=== PATIENT | female | born 1950 | race Caucasian/White ===

== ENCOUNTER 2020-09-18 21:26 | Emergency (ER) | payer MEDICARE ==
[2020-09-18 22:10] LABS: ABSOLUTE BASOPHILS # (AUTO) 0.1 10^3/uL (0.0-0.2); ABSOLUTE LYMPHOCYTES (AUTO) 1.3 10^3/uL (0.5-4.7); ABSOLUTE MONOCYTES (AUTO) 0.9 10^3/uL (0.1-1.4); ABSOLUTE NEUT (AUTO) 10.7 10^3/uL (1.7-8.2); BASOPHILS % (AUTO) 0.4 % (0-2); EOSINOPHILS % (AUTO) 0.3 % (0-6); HEMATOCRIT 37.2 % (36.0-47.0); HEMOGLOBIN 12.5 g/dL (12.0-15.5); LYMPHOCYTES % (AUTO) 10.3 % (13-45); MEAN CORPUSCULAR HEMOGLOBIN 30.4 pg (27.0-33.4); MEAN CORPUSCULAR HGB CONC 33.6 g/dL (32.0-36.0); MEAN CORPUSCULAR VOLUME 90 fl (80-97); MONOCYTES % (AUTO) 6.8 % (3-13); PLATELET COUNT 150 10^3/uL (150-450); RED BLOOD COUNT 4.12 10^6/uL (3.72-5.28); SEGMENTED NEUTROPHILS % (AUTO) 82.2 % (42-78); TOTAL CELLS COUNTED % (AUTO) 100 %
[2020-09-18 22:20] LABS: ALBUMIN 4.4 g/dL (3.5-5.0); ALKALINE PHOSPHATASE 120 U/L (38-126); ANION GAP 9 (5-19); ASPARTATE AMINO TRANSFERASE 161 U/L (14-36); BILIRUBIN,DIRECT 0.1 mg/dL (0.0-0.4); BILIRUBIN,TOTAL 1.6 mg/dL (0.2-1.3); BLOOD UREA NITROGEN 16 mg/dL (7-20); CALCIUM 10.2 mg/dL (8.4-10.2); CARBON DIOXIDE 28 mmol/L (22-30); CHLORIDE 104 mmol/L (98-107); GLUCOSE 107 mg/dL (75-110); POTASSIUM 4.4 mmol/L (3.6-5.0); TOTAL PROTEIN 7.2 g/dL (6.3-8.2)
[2020-09-18 22:22] LABS: APPEARANCE,URINE CLEAR; BILIRUBIN,URINE NEGATIVE (NEGATIVE); COLOR,URINE YELLOW; GLUCOSE, URINE NEGATIVE (NEGATIVE); KETONES,URINE 20 mg/dL (NEGATIVE); LEUKOCYTE ESTERASE,URINE SMALL (NEGATIVE); NITRITE,URINE POSITIVE (NEGATIVE); PROTEIN,URINE NEGATIVE (NEGATIVE); UROBILINOGEN,URINE NEGATIVE mg/dL (<2.0)
[2020-09-18 22:22] LABS: ALCOHOL < 10 mg/dL (NONE DETECTED)
--- NOTE | 2020-09-18 22:25 | ER Document Report ---
ED General - General Chief Complaint: Altered Mental Status Stated Complaint: AMS Time Seen by Provider: 09/18/20 21:51 Primary Care Provider: KACI AGUIRRE FNP [Primary Care Provider] - Follow up as needed TRAVEL OUTSIDE OF THE [place] IN LAST 30 DAYS: No - HPI Notes: 70-year-old female presents with altered mental status. Information is primarily obtained from nursing/EMS report. Around 1200 today patient seemed to become angry and off, at one point she was repeating words and singing inappropriately. She continued to be altered for the rest of the day therefore prompting her sister to call EMS. She apparently fell on Wednesday and has a bruise to her forehead. She had a brief moment of alertness with EMS where she did answer questions appropriately. EMS did actually give Narcan in route without much change in her mental status. Patient mostly altered, during in and out cath patient did become alert and communicate clearly, stating that she has pain where the urinary catheter was going in. - Related Data Allergies/Adverse Reactions: SANFORD Inhibitors [Sanford Inhibitors] Allergy (Unknown, Verified 10/24/13 13:54) ACEINHIBITORS [SANFORD Inhibitors] Allergy (Unknown, Verified 05/14/11 09:59) codeine [Codeine] Allergy (Unknown, Verified 05/14/11 09:58) Home Medications: Irbesartan [address] 20 mg. Fuosemide 20 mg. OsteoBiflex Triple strength 2 tablets. Aleve liquid gels. Simvastatin. Asipirin. Labetalol 100 mg. Spironolactone 25 mg. Morphine Sulf ER 15 mg. AZO bladder control capsule. Oxycodone-Acetaminophen 5-325 mg. Baclofen 20 mg. Gabapentin 300 mg Past Medical History - General Information source: Emergency Med Personnel Cannot obtain history due to: Altered mental status - Social History Smoking Status: Unknown if Ever Smoked Family History: CAD - Past Medical History Cardiac Medical History: Reports: Hx Hypercholesterolemia, Hx Hypertension Review of Systems - Review of Systems -: Yes ROS unobtainable due to patient's medical condition Physical Exam - Vital signs Vitals: Temp Pulse Resp Pulse Ox 98.3 F 90 19 99 09/18/20 21:27 09/18/20 21:27 09/18/20 21:27 09/18/20 21:27 - General In distress: None - HEENT Head: Normocephalic, Ecchymosis - Forehead Extraocular movements intact: Yes Pupils: PERRL Mucous membranes: Moist - Respiratory Respiratory status: No: Depressed respirations Breath sounds: Normal - Cardiovascular Rhythm: Regular Heart sounds: Normal auscultation Murmur: Yes Normal capillary refill: Yes - Abdominal Inspection: Obese Tenderness: Nontender Notes: Umbilical hernia, soft with no overlying erythema - Genitourinary External exam: Other - Strong urine smell - Extremities General upper extremity: Normal temperature General lower extremity: Normal temperature. No: Edema - Neurological Notes: Patient mostly exhibits altered mental status, had brief lucid episode where she communicated. During this time she had clear speech. Her face is symmetric. She does move all of her extremities. Lucid for about 1 minute and then appeared to become altered again. No gross neuro deficits though there is some limitation given her AMS - Psychological Associated symptoms: Other - Unable to fully assess - Skin Skin Temperature: Warm Course - Re-evaluation Re-evalutation: 70-year-old female arrives from home via EMS for altered mental status onset at 1200 today. Patient is mostly altered/delirious, had brief lucid episode where she was able to clearly communicate that the urinary catheter was causing her pain. She has no gross neuro deficits though there is some limitation to exam. If any strokelike process were to be present, she would be outside the window for TPA, though a low suspicion for acute CVA at this time given that she does move all extremities, her face is symmetric and her speech was clear. She is currently hemodynamically stable. Lungs are clear and abdomen is soft. There is a strong urine smell, suspect possible UTI which could be causing the delirium. Reviewed her medication list, she is on chronic morphine and oxycodone, additionally takes baclofen and gabapentin. If she has MARCK or other metabolic abnormality present, this could possibly be accumulation of drug effect as well. She has no respiratory depression or hypoxia to necessitate more Narcan at this time. Will obtain chest x-ray to assure that no consolidati on is present. Obtain CT head to assure that no bleed is present given that she did fall 2 days ago. 09/18/20 22:25 Urine with evidence of UTI, will send for culture. There is a urine culture from 2010 which did not have any growth. Will start with empiric Rocephin, use 2g given her weight/BMI 12/02/20 23:52 Slight leukocytosis, anticipate this given the UTI. Electrolytes within normal limits. Creatinine is within normal limits. No anion gap. Bicarb is normal limits. Head CT is negative for acute finding. No consolidation on chest x- ray. I went to reassess patient, she is now completely alert and oriented. She was able to recount her admission from 2010. Does admit to some flank pain, will consider her Laurent. She is able to give a medical history and is able to state that she typically does go on Keflex for urinary tract infections. She moves all extremities and has no gross focal deficits. She has tolerated p.o. I did give her a dose of [place] for her chronic pain. Sister at bedside is comfortable taking her home. Discussed that she may be called if culture results and antibiotics to be changed. Return precautions given, stable at time of discharge. - Vital Signs Vital signs: Temp Pulse Resp BP Pulse Ox 98.3 F 90 23 H 117/104 H 98 09/18/20 21:27 09/18/20 21:27 09/18/20 22:01 09/18/20 22:01 09/18/20 22:15 - Laboratory Result Diagrams: 09/18/20 21:37 09/18/20 21:37 Laboratory results interpreted by me: 09/18/20 09/18/20 09/18/20 21:37 21:37 21:43 WBC 13.0 H Lymph % (Auto) 10.3 L Absolute Neuts (auto) 10.7 H Seg Neutrophils % 82.2 H Est GFR (MDRD) Non-Af 53 L POC Glucose 112 H Magnesium 2.4 H Total Bilirubin 1.6 H AST 161 H ALT 48 H Urine Ketones Urine Blood Urine Nitrite Ur Leukocyte Esterase 09/18/20 22:00 WBC Lymph % (Auto) Absolute Neuts (auto) Seg Neutrophils % Est GFR (MDRD) Non-Af POC Glucose Magnesium Total Bilirubin AST ALT Urine Ketones 20 H Urine Blood SMALL H Urine Nitrite POSITIVE H Ur Leukocyte Esterase SMALL H - Diagnostic Test Radiology reviewed: Image reviewed, Reports reviewed - EKG Interpretation by Me Additional EKG results interpreted by me: EKG is interpreted by me. Normal sinus rhythm, rate 80. Narrow QRS, QTC within normal limits. No ST segment elevation or depression. Discharge - Discharge Clinical Impression: Bacterial UTI Disposition: HOME, SELF-CARE Instructions: Urinary Tract Infection ([facility]) Additional Instructions: Please begin course of antibiotic. You will be called based on culture result if antibiotic needs to be changed. Be sure to drink plenty of fluids. Please have close follow-up with your primary care doctor. Return to the emergency department for any concerning or worsening symptoms. Prescriptions: Cephalexin Monohydrate [Keflex 500 mg Capsule] 500 mg PO BID 10 Days #20 capsule Referrals: KACI AGUIRRE FNP [Primary Care Provider] - Follow up as needed
[2020-09-18] MEDS ORDERED: CEFTRIAXONE 2 GM/D5W RTU 2 GM/50 ML RTUPB IV ONE (22:26)
[2020-09-18 22:37] LABS: URINE AMPHETAMINES SCREEN NEGATIVE; URINE BARBITURATES SCREEN NEGATIVE; URINE BENZODIAZEPINES SCREEN NEGATIVE; URINE COCAINE SCREEN NEGATIVE; URINE MARIJUANA (THC) SCREEN NEGATIVE; URINE METHADONE SCREEN NEGATIVE; URINE PHENCYCLIDINE SCREEN NEGATIVE
--- NOTE | 2020-09-18 23:12 | RADIOLOGY REPORT (SQ) ---
CHEST X-RAY 1 VIEW on 09/18/2020 at 10:18 PM CLINICAL INDICATION: Altered mental status COMPARISON: 05/14/2011 FINDINGS: Examination is somewhat limited by patient body habitus and technique. Lungs appear grossly clear. Cardiac, hilar and mediastinal contours are within normal limits. Vascular calcification is noted in the aorta. No bony abnormality is noted. IMPRESSION: No acute disease.
--- NOTE | 2020-09-18 23:14 | RADIOLOGY REPORT (SQ) ---
CT head without contrast on 09/18/2020 at 10:12 PM CLINICAL INDICATION: Altered mental status TECHNIQUE: Multiple axial images are obtained throughout the head without the administration of contrast. This exam was performed according to our departmental dose-optimization program, which includes automated exposure control, adjustment of the mA and/or kV according to patient size and/or use of iterative reconstruction technique. Total DLP is 990.56 mGy*cm. COMPARISON: 05/14/2011 FINDINGS: There is mild low-density in the periventricular white matter consistent with chronic small vessel ischemic changes. There is no hydrocephalus. There is no CT evidence of acute infarct. There is no hemorrhage. There are no abnormal extra-axial fluid collections. There is no mass, mass effect or midline shift. No bony abnormality is noted. IMPRESSION: No acute intracranial abnormality.
[2020-09-18] MEDS ORDERED: HYDROCODONE/ACETAMINOPHEN 5-325 MG TABLET PO ONE (23:46)
[2020-09-19 01:57] VITALS: BP 158/77
--- NOTE | 2020-09-19 17:43 | EKG REPORT ---
SEVERITY:- NORMAL ECG - SINUS RHYTHM : Confirmed by: Heriberto Wasserman MD 19-Sep-2020 17:42:16
== END 2020-09-19 01:57 | disposition home or self-care (01) ==
LOC: ER 21:26
DX: N39.0 Urinary tract infection, site not specified (principal); B96.89 Other specified bacterial agents as the cause of diseases classified elsewhere; R41.0 Disorientation, unspecified; S00.83XA Contusion of other part of head, initial encounter; W19.XXXA Unspecified fall, initial encounter; I10 Essential (primary) hypertension; E78.00 Pure hypercholesterolemia, unspecified; Z79.899 Other long term (current) drug therapy; Z79.1 Long term (current) use of non-steroidal anti-inflammatories (NSAID); Z79.891 Long term (current) use of opiate analgesic; Z88.8 Allergy status to other drugs, medicaments and biological substances; Z88.6 Allergy status to analgesic agent; Z88.5 Allergy status to narcotic agent
CPT/HCPCS: 93005; 99285; 96360; 51701; 36415; 87086; 82962; 80307 ×2; 83735; 85025; 87088; 80053; 81001; 87186; 71045; 70450; 93010; A9270; J0696